=== PATIENT | female | born 1960 | race Caucasian/White ===

== ENCOUNTER 2017-09-23 09:00 | Emergency (ER) | payer OTHER ==
[~2017-09-23] VITALS: Ht 160 cm; Wt 90.7 kg
[2017-09-23 09:16] VITALS: BP 101/69
--- NOTE | 2017-09-23 10:41 | ED UPPER/LOWER EXTREMITY COMPL ---
History of Present Illness General Chief Complaint: Foot or Ankle Injury Stated Complaint: R FOOT PAIN? Source: patient, friend Exam Limitations: no limitations Vital Signs & Intake/Output Vital Signs & Intake/Output Vital Signs Date Time Temp Pulse Resp B/P B/P Pulse O2 O2 Flow FiO2 Mean Ox Delivery Rate 09/23 1102 96.8 09/23 0916 96.8 17 18 101/69 96 Room Air Allergies Coded Allergies: latex (Intermediate, RASH 09/23/17) Reconcile Medications Ibuprofen 600 MG TABLET 1 TAB PO TID PRN pain with food Core Measure Meds Pre-Hospital aspirin (for "leaky heart valves") Triage Note: C/O NUMBNESS TO R FOOT X A FEW WEEKS, HAD AN U/S DONE AT [facility] 2 WEEKS AGO. SINCE THEN, NUMBNESS IS GONE, BUT NOW C/O PAIN IN BOTTOM OF FOOT, WITH DIFFICULTY BEARING WEIGHT. Triage Nurses Notes Reviewed? yes Onset: Gradual Duration: changing over time, getting worse Pain/Injury Location: Right: Foot. Method of Injury: tredmill test with neurologist at [facility] No Modifying Factors: none Associated Symptoms: none HPI: 57-year-old female presents to the emergency room with right foot pain. She reports a history of about 1 week ago having a treadmill test at [facility] ordered by her neurologist for having on and off numbness on her bilateral feet. She states that after walking on the treadmill her right bottom foot became very painful. She states that over the last week the pain has worsened. She has been using a cane for walking assistance. She denies taking any medications for pain. She reports that she received the results of the treadmill test and everything was normal. She has a resource paraprofessional in [place] and was going to schedule appointment for this upcoming week. However, she reports that she could not wait until next week because of the amount of pain and inability to bear weight on the right foot. She does report a history of heel spurs on bilateral feet. She is taking baby aspirin for "leaky valves of the heart". She denies any diabetes or hypertension. Past History Travel History Traveled to [place] past 21 day No Medical History Any Pertinent Medical History? see below for history Neurological: intermittent numbness of feet, sees neurologist EENT: NONE Cardiovascular: hyperlipidemia, mitral regurgitation Respiratory: NONE Gastrointestinal: NONE Hepatic: NONE Renal: NONE Musculoskeletal: osteoarthritis Psychiatric: anxiety Endocrine: NONE Blood Disorders: NONE Surgical History Surgical History: right knee replacement Psychosocial History Where do you live Home What is your primary language Divehi Tobacco Use: Never used ETOH Use: denies use Family History Hx Contributory? No Review of Systems Review of Systems Constitutional: Reports: no symptoms. EENTM: Reports: no symptoms. Respiratory: Reports: no symptoms. Cardiovascular: Reports: no symptoms. Gastrointestinal/Abdominal: Reports: no symptoms. Genitourinary: Reports: no symptoms. Musculoskeletal: Reports: see HPI. Skin: Reports: no symptoms. Neurological/Psychological: Reports: no symptoms. Hematologic/Endocrine: Reports: no symptoms. Immunological: Reports: no symptoms. All Other Systems: Reviewed and Negative Physical Exam Physical Exam General Appearance: well developed/nourished, no apparent distress, alert, comfortable Head: atraumatic, normal appearance Eyes: Bilateral: normal appearance. Ears, Nose, Throat: hearing grossly normal Neck: normal inspection, full range of motion Cardiovascular/Respiratory: no respiratory distress Peripheral Pulses: 2+ tibialis posterior (R), 2+ dorsalis pedis (R) Foot Right: tenderness (plantar surface), limited range of motion Neurologic/Tendon: normal sensation Skin: intact, normal color, warm/dry Diagram Feet Bottom 1) Progress Differential Diagnosis: tendon injury, bone spur, plantar fasciitis, braga neuroma Plan of Care: Orders Procedure Date/time Status XRY-FOOT COMPLETE, RIGHT 09/23 1042 Active Diagnostic Imaging: Viewed by Me: Radiology Read. Discussed w/RAD: Radiology Read. Radiology Impression: PATIENT: RAQUEL MYLES PRESENT AGE: 57 PATIENT ACCOUNT NO: [id number] : 58 LOCATION: [facility] ORDERING PHYSICIAN: Tuyet CARRANZA SERVICE DATE: 09/23/17 EXAM TYPE: RAD - XRY- FOOT COMPLETE, R EXAMINATION: XR FOOT, RIGHT CLINICAL INFORMATION: Bone spur. Pain on plantar surface of foot. COMPARISON: None TECHNIQUE: AP, lateral, and oblique views of the right foot. FINDINGS: Small plantar calcaneal spur is seen. No acute fracture or dislocation. Well-corticated bone fragment seen adjacent to the medial malleolus, consistent with old healed fracture deformity or prominent accessory ossicle. Bony structures unremarkable. No significant ankle joint effusion. IMPRESSION: 1. Small plantar calcaneal spur is seen, raising the suspicion of chronic plantar fasciitis. 2. Probable old fracture deformity versus prominent accessory ossicle adjacent to the tip of the medial malleolus. DICTATED BY: Radha Rainey MD DATE/TIME DICTATED:09/23/171111 [employer] DATE/TIME TRANSCRIBED:09/23/171111 CONFIDENTIAL, DO NOT COPY WITHOUT APPROPRIATE AUTHORIZATION. <Electronically signed in Other Vendor System> SIGNED BY: Radha Rainey MD 09/23/171116 Departure Departure Disposition: HOME OR SELF CARE Condition: Stable Clinical Impression Primary Impression: Plantar fasciitis of right foot Referrals: Sara LAWS,Alicia Diaz (PCP/Family) Additional Instructions: Take ibuprofen 600 mg as needed for pain. Continue to use cane for walking assistance. Follow-up with resource paraprofessional Dr. Ayala this week for further management. Return to emergency department with worsening symptoms. Departure Forms: Customer Survey General Discharge Information Prescriptions: Current Visit Scripts Ibuprofen 1 TAB PO TID PRN pain #30 TAB with food Comments 57-year-old female presents to the emergency department with right foot pain. X -ray revealed small plantar calcaneal spur which indicates chronic plantar fasciitis. This was probably exacerbated with the treadmill test that her neurologist had ordered 1 week ago. She was given ibuprofen 600 mg in the emergency department with mild relief. She was fitted with a postop foot boot. She is advised to follow-up with her resource paraprofessional Dr. Ayala this week. She is advised to return to the emergency department with worsening pain or other concerning symptoms. ED Attending Observation Initial Observation Note: I have seen and personally examined RAQUEL MYLES on 09/23/17 at 1150. I agree with the current emergency department documentation. The disposition (admission or discharge) is uncertain at this time, she needs a period of observation for the following reason(s): The ED Nurse caring for this patient has been personally informed as to what the patient is being observed for.
--- NOTE | 2017-09-23 11:17 | RADIOLOGY REPORT ---
EXAMINATION: XR FOOT, RIGHT CLINICAL INFORMATION: Bone spur. Pain on plantar surface of foot. COMPARISON: None TECHNIQUE: AP, lateral, and oblique views of the right foot. FINDINGS: Small plantar calcaneal spur is seen. No acute fracture or dislocation. Well-corticated bone fragment seen adjacent to the medial malleolus, consistent with old healed fracture deformity or prominent accessory ossicle. Bony structures unremarkable. No significant ankle joint effusion. IMPRESSION: 1. Small plantar calcaneal spur is seen, raising the suspicion of chronic plantar fasciitis. 2. Probable old fracture deformity versus prominent accessory ossicle adjacent to the tip of the medial malleolus.
[2017-09-23] MEDS ORDERED: IBUPROFEN600 M1 PO (11:44)
== END 2017-09-23 12:22 ==
LOC: ERH 09:00
DX: M72.2 Plantar fascial fibromatosis (principal)
CPT/HCPCS: 73630-RT